=== PATIENT | male | born 1945 | race Caucasian/White ===

== ENCOUNTER 2020-09-20 20:02 | Emergency (ER) | payer MEDICARE, OTHER, SELFPAY ==
[2020-09-20 20:03] VITALS: BP 124/91; PULSE 109; RESP 22; TEMP 35.3; O2SAT 90; BMI 27.6
--- NOTE | 2020-09-20 20:33 | CTR_ITS ---
PROCEDURE INFORMATION: Exam: CT Head Without Contrast Exam date and time: 09/20/2020 8:33 PM Age: 74 years old Clinical indication: Injury or trauma; Blunt trauma (contusions or hematomas); Patient HX: Fall. Confusion. TECHNIQUE: Imaging protocol: Computed tomography of the head without contrast. Radiation optimization: All CT scans at this facility use at least one of these dose optimization techniques: automated exposure control; mA and/or kV adjustment per patient size (includes targeted exams where dose is matched to clinical indication); or iterative reconstruction. COMPARISON: No relevant prior studies available. RADIATION DOSE METRICS: Total DLP (mGy-cm): 1664.79 FINDINGS: Brain: No hemorrhage. Unremarkable white matter. No mass effect. Mild diffuse cerebral atrophy. Cerebral ventricles: No ventriculomegaly. Incidental intact cavum septum pellucidum and et vergae. Paranasal sinuses: Visualized sinuses are unremarkable. No fluid levels. Mastoid air cells: Right mastoid effusion. Left mastoid air cells well pneumatized. Bones/joints: Unremarkable. No acute fracture. Soft tissues: Unremarkable. CT/CT head wo con* [id number] IMPRESSION: 1. No acute intracranial abnormality. 2. Right mastoid effusion. Radiation Dose CTDIVOL = (mGy): DLP = 1664.79 (mGy-cm)
--- NOTE | 2020-09-20 20:33 | XRR_ITS ---
PROCEDURE INFORMATION: Exam: XR Right Shoulder Exam date and time: 09/20/2020 8:33 PM Age: 74 years old Clinical indication: Injury or trauma; Fall; Crushing; Shoulder; Right TECHNIQUE: Imaging protocol: XR Right shoulder. Views: 2 or more views. COMPARISON: CR Chest 1 [place] [id number] 04/21/2016 11:46 PM FINDINGS: Bones/joints: Comminuted fracture of the right humeral head/neck. No evidence of dislocation. 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 Soft tissues: Normal. XR/XR shoulder RT min 2V* [id number] IMPRESSION: Comminuted fracture of the proximal right humerus.
--- NOTE | 2020-09-20 20:35 | PC.NURSE ---
While initiating an IV, this RN witnessed pt's heartrate go to 180, which stayed for approx 3 minutes. MD Natarajan entered room and pt converted, with HR 118. Hx a-fib. Will continue to monitor.
[2020-09-20 21:40] VITALS: BP 123/89; PULSE 104; RESP 18; O2SAT 93
--- NOTE | 2020-09-20 21:41 | W.ED.FALL ---
HPI - Fall General: Chief Complaint: Fall Stated Complaint: FALL Time Seen by Provider: 09/20/20 20:21 Source: patient and RN notes reviewed Mode of arrival: EMS Limitations: no limitations History of Present Illness: HPI Narrative: Patient is a 74-year-old male with a history of atrial fibrillation, right below-knee amputation from the [place] who presented to the emergency department following a fall 2 days ago. He states that he was walking backwards and lost his footing and fell. He fell twice 2 days ago and on at least one occasion he hit his head. He denies any loss of consciousness. He has had right shoulder pain since then and reduced movement of the right shoulder. Because the symptoms are not getting any better he presented to the emergency department today to be evaluated. MD complaint: fall Onset (ago): day(s) (2) Fall from: standing Fall witnessed: yes, by family Place fall occurred: home Loss of consciousness: None Prolonged down time: no Symptoms prior to fall: none Context: tripped/slipped Location of injury: head Location of injury - extremities: Right: shoulder Severity: moderate Quality: dull Associated symptoms-after fall: Denies abdominal pain, chest pain, confusion, difficulty walking, headache(s), hematuria, lightheadedness, neck pain, numbness, short of breath, vertigo or weakness Review of Systems General: Reports: 10 or more systems reviewed and unremarkable except in HPI and below Card: Denies: chest pain or lightheadedness GI: Denies: abdominal pain : Denies: hematuria Musc: Denies: neck pain Neuro: Denies: headache(s), difficulty walking, vertigo or confusion Physical Exam Const: COMMON NORMALS: no acute distress, average body habitus, patient oriented x3, no limitations, healthy appearing, alert and well nourished HENMT: COMMON NORMALS: normocephalic, atraumatic and moist oral mucous membranes HEAD & SCALP: normocephalic and atraumatic Eye: COMMON NORMALS: Equal, round and reactive pupils present, EOMs intact bilaterally, conjunctivae normal and no scleral icterus CONJUNCTIVA: Yes conjunctivae normal PUPIL: Yes Equal, round and reactive pupils present Neck/C-Spine: COMMON NORMALS: full ROM, supple, no meningeal signs, no JVD and No carotid bruits Resp: COMMON NORMALS: normal respiratory effort, No retractions, No use of accessory muscles, clear to auscultation bilaterally and percussion normal AUSCULTATION: clear to auscultation bilaterally PERCUSSION: percussion normal Cardio: COMMON NORMALS: no JVD, regular rate, regular rhythm, S1 normal heart sound present, S2 normal heart sound present, No gallops present (Cardio), No clicks present (Cardio), No murmurs present (Cardio), No rub (Cardio) and Peripheral pulses 2+ throughout RATE: regular rate RHYTHM: regular rhythm HEART SOUNDS: S1 normal heart sound present and S2 normal heart sound present PERIPHERAL PULSES: Peripheral pulses 2+ throughout GI: COMMON NORMALS: Normal to inspection, nondistended, normoactive bowel sounds present, Soft to palpation, non-tender, No hepatosplenomegaly present, no masses and no bruits PALPATION: Yes Soft to palpation and Yes No hepatosplenomegaly present Extremity: COMMON NORMALS: normal to inspection, full ROM, capillary refill normal, no calf tenderness and no pedal edema RIGHT UPPER EXTREMITY: Yes shoulder joint (tender to palpation) Right shoulder: Yes Right shoulder joint inspection exam (deformity noted), Yes palpation, Yes Right shoulder joint ROM exam (significantly reduced.) and Yes Right shoulder joint neurovascular exam (intact) OTHER: Right above-knee amputation. Neuro: COMMON NORMALS: patient oriented x3 SENSORIUM/ORIENTATION: Yes alert MENINGEAL SIGNS: Yes no meningeal signs Skin: COMMON NORMALS: no rashes or lesions noted, no wounds, turgor normal, no jaundice, no petechiae and no mottling GENERAL SKIN EXAM: no rashes or lesions noted, turgor normal and ecchymosis (right shoulder) Course Reevaluation(s): Reevaluation #1: Discussed his imaging findings with him. Head CT with no acute findings. Shoulder x-ray shows a comminuted fracture of his proximal humerus. He is neurovascular status is intact. He is advised that he be placed in a sling and discharged home to follow-up with orthopedic surgery. A referral was made for case management to schedule an appointment with orthopedic surgery. We will discharge her home with a prescription for pain medication. He voiced understanding and is in agreement with the plan. Time: 21:41 Vital Signs: Vital signs: Vital Signs Temperature 95.5 F L 09/20/20 20:03 Pulse Rate 105 H 09/20/20 22:37 Respiratory Rate 18 09/20/20 22:37 Blood Pressure 122/76 09/20/20 22:37 Pulse Oximetry 93 09/20/20 22:37 MDM - Fall MDM Narrative: Medical decision making narrative: 74-year-old male who had a mechanical fall 2 days ago and sustained a right proximal humeral fracture. No other obvious injuries. He was placed in a sling, given a dose of intravenous morphine in the emergency department and discharged home with a prescription for hydrocodone. Referral was made for case management to schedule an appointment with orthopedic surgery. Medical Records: Attestation: I reviewed the patient's medical records. Imaging Data^: CT Head: Attestation: I personally reviewed and interpreted this imaging study as follows: Radiologist's impression: [address], [place] [address]W[place] Scan ReportSigned Patient: Abdiaziz Ahuja #: [id number]: 7Acct#:[id number]/Sex: 74 / MADM Date: 09/20/20Loc: ERRoom/Bed:Attending Dr: Ordering Provider/Ordering MD: [place] [facility] [place] Service: 09/20/20 Procedure(s): CT head wo con* [id number] Accession Number(s): [id number] Report Number: [id number] PROCEDURE INFORMATION: Exam: CT Head Without Contrast Exam date and time: 09/20/2020 8:33 PM Age: 74 years old Clinical indication: Injury or trauma; Blunt trauma (contusions or hematomas); Patient HX: Fall. Confusion. TECHNIQUE: Imaging protocol: Computed tomography of the head without contrast. Radiation optimization: All CT scans at this facility use at least one of these dose optimization techniques: automated exposure control; mA and/or kV adjustment per patient size (includes targeted exams where dose is matched to clinical indication); or iterative reconstruction. COMPARISON: No relevant prior studies available. RADIATION DOSE METRICS: Total DLP (mGy-cm): 1664.79 FINDINGS: Brain: No hemorrhage. Unremarkable white matter. No mass effect. Mild diffuse cerebral atrophy. Cerebral ventricles: No ventriculomegaly. Incidental intact cavum septum pellucidum and et vergae. Paranasal sinuses: Visualized sinuses are unremarkable. No fluid levels. Mastoid air cells: Right mastoid effusion. Left mastoid air cells well pneumatized. Bones/joints: Unremarkable. No acute fracture. Soft tissues: Unremarkable. CT/CT head wo con* [id number] IMPRESSION: 1. No acute intracranial abnormality. 2. Right mastoid effusion. Radiation Dose CTDIVOL = (mGy): DLP = 1664.79 (mGy-cm) Dictated By:Saravanan Santoyo DOSigned By:Saravanan Santoyo DOSigned Date/Time:09/20/202127DD/ 26 Xray Ortho: Attestation: I personally reviewed and interpreted this imaging study as follows: Radiologist's impression: [facility] [address] [facility] [place], [place] [address]PRhi ReportSigned Patient: Abdiaziz Ahuja #: [id number]: 1945cct#:[id number]/Sex: 74 / MADM Date: 09/20/20Loc: ERRoom/Bed:Attending Dr: Ordering Provider/Ordering MD: Isabel N[place]ajan [place] [facility] [place] of Service: 09/20/20 Procedure(s): XR shoulder RT min 2V* [id number] Accession Number(s): [id number] Report Number: [id number] PROCEDURE INFORMATION: Exam: XR Right Shoulder Exam date and time: 09/20/2020 8:33 PM Age: 74 years old Clinical indication: Injury or trauma; Fall; Crushing; Shoulder; Right TECHNIQUE: Imaging protocol: XR Right shoulder. Views: 2 or more views. COMPARISON: CR Chest 1 [place] [id number] 04/21/2016 11:46 PM FINDINGS: Bones/joints: Comminuted fracture of the right humeral head/neck. No evidence of dislocation. 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 Soft tissues: Normal. XR/XR shoulder RT min 2V* [id number] IMPRESSION: Comminuted fracture of the proximal right humerus. Dictated By:Saravanan Santoyo DOSigned By:Smetko,Saravanan DOSigned Date/Time:09/20/202119DD/ 17 Discharge Plan Discharge Patient Disposition: Home Clinical Impression: Right humeral fracture Qualifiers: Encounter type: initial encounter Humerus Location: proximal Fracture type: closed Fracture morphology: other fracture Fracture alignment: displaced Qualified Code(s): S42.291A - Other displaced fracture of upper end of right humerus, initial encounter for closed fracture Condition: Stable Prescriptions: New hydrocodone-acetaminophen 5-325 mg tablet 1 tab PO Q8H PRN (Reason: pain) Qty: 21 RF: 0 Continued hydrochlorothiazide 25 mg Tablet 12.5 mg PO DAILY RF: 0 lisinopril 40 mg Tablet 20 mg PO DAILY RF: 0 Discharge Orders: Discharge ED (Routine); Ordered 09/20/20 Ordered By: Isabel Natarajan Discharge Diet: Usual diet Discharge Activity: Increase activity as tolerated Patient Instructions: Fractures - Humerus, Opioid Safety Activity Restrictions/Additional Instructions: Return for any new or worsening symptoms. Take the pain medicine as needed for severe pain. You will be contacted by case management to schedule an appointment with the orthopedic surgeon for further evaluation. Use the sling for comfort and keep it on until you are evaluated by the orthopedic surgeon. Coding Level of Care Code ED Valve Machine Operator for Makenzie Brantley
--- NOTE | 2020-09-20 21:42 | PC.NURSE ---
Given ice chips; ok per MD
[2020-09-20] MEDS: morphine 4 mg/mL SDV 1 mL IVP (21:46)
[2020-09-20] MEDS: ondansetron 2 mg/ML SDV 2 mL 4 MG IVP (21:46)
--- NOTE | 2020-09-20 22:09 | PC.NURSE ---
Applied an arm sling to RUE. Pt tolerated well.
[2020-09-20 22:37] VITALS: BP 122/76; PULSE 105; RESP 18; O2SAT 93
--- NOTE | 2020-09-21 09:02 | DCPLANNER ---
implementation project manager had message to schedule a follow up appointment for patient with ortho for a right humeral fracture. implementation project manager called the ortho clinic, spoke with Sheba, gave clinic patients information. implementation project manager was told that patients information would be printed and reviewed. Clinic will call patient with appointment information.
--- NOTE | 2020-10-05 15:50 | DCPLANNER ---
rehabilitation services manager called ortho clinic, spoke with Sheba, to confirm if a follow up appointment had been scheduled for patient. rehabilitation services manager spoke with Sheba, was told that clinic has not been able to reach patient at any number in chart.
== END 2020-09-20 22:38 | disposition home or self-care (01) ==
PROVIDERS: Emergency Provider Family Medicine
DX: S42.291A Other displaced fracture of upper end of right humerus, initial encounter for closed fracture (principal); W01.0XXA Fall on same level from slipping, tripping and stumbling without subsequent striking against object, initial encounter; Y92.009 Unspecified place in unspecified non-institutional (private) residence as the place of occurrence of the external cause
CPT/HCPCS: 70450; 73030; 96374; 96375; 99283; J2270; J2405